=== PATIENT | female | born 1935 | race Caucasian/White ===

== ENCOUNTER → 2018-05-05 | Outpatient (CLI) | payer MEDICARE ==
--- NOTE | 2018-05-05 11:48 | US ---
EXAMINATION TYPE: US abdomen complete DATE OF EXAM: 05/05/2018 COMPARISON: CLINICAL HISTORY: Abnormal gallbladder function K82.9. abn labs, npo EXAM MEASUREMENTS: Liver Length: 12.7 cm Gallbladder Wall: 0.2 cm CBD: 0.3 cm Spleen: 9.6 cm Right Kidney: 9.2 x 5.1 x 3.0 cm Left Kidney: 9.8 x 4.2 x 4.3 cm Pancreas: Appears heterogenous in appearance Liver: Multiple cystic appearing lesions seen throughout liver. Largest measured. Right lobe- 3.2 x 3.6 x 2.8 cm. Left lobe- 1.5 x 1.6 x 2.1 cm Gallbladder: wnl Evidence for sonographic Reardon's sign: neg CBD: wnl Spleen: wnl Right Kidney: multiple cystic appearing lesion seen. Largest measured, lower pole - 1.6 x 1.5 x 1.6 cm Left Kidney: Multiple cystic appearing lesion seen. Largest measured, lower pole = 1.7 x 1.4 x 1.4 cm Upper IVC: wnl Abd Aorta: Plaque visualized, No AAA visualized The liver is homogenous. The intrahepatic portion of the IVC and proximal abdominal aorta are within normal limits. There is no evidence of cholelithiasis. Common bile duct is unremarkable. The sple en is unremarkable. Kidneys are symmetric and free of hydronephrosis. No solid renal lesions are se en. IMPRESSION: 1. Multiple hepatic and renal cysts. 2. Nonspecific pancreatic heterogeneity without distinct lesion.
== END | disposition home or self-care (01) ==
LOC: RADUSWWP 08:55
PROVIDERS: ATTEND Family Medicine
DX: N28.1 Cyst of kidney, acquired (principal); K76.89 Other specified diseases of liver; R93.3 Abnormal findings on diagnostic imaging of other parts of digestive tract
CPT/HCPCS: 76700

== ENCOUNTER → 2018-06-02 | Outpatient (CLI) | payer MEDICARE ==
--- NOTE | 2018-06-02 13:02 | BD ---
EXAMINATION TYPE: Axial Bone Density DATE OF EXAM: 06/02/2018 CLINICAL HISTORY: Height: 62 Weight: 135 FRAX RISK QUESTIONS: Alcohol (3 or more units per day): no Family History (Parent hip fracture): no Glucocorticoids (More than 3mos): no (Ex: prednisone, prednisolone, methylprednisolone, dexamethasone, and hydrocortisone). History of Fracture in Adulthood: no Secondary Osteoporosis: 1. Type 1 Diabetes: no 2. Hyperthyroidism: unsure 3. Menopause before 45: no 4. Malnutrition: no 5. Chronic liver disease: no Rheumatoid Arthritis: no Current Tobacco Use: no RISK FACTORS HISTORY OF: Family History of Osteoporosis: yes Active: somewhat, uses wheelchair at times Diet low in dairy products/other sources of calcium: somewhat-servings several times a week Postmenopausal woman: yes Take estrogen and/or progesterone medications: no Lost more than 2 inches in height since high school: yes Frequent falls: no Poor Health: no Hyperparathyroidism: no Adrenal Insufficiency: no MEDICATIONS: Prednisone or other steroids: no Thyroid Medications: yes Which medication: Levothyroxine How Long: about 50 years Osteoporosis Medications: no Additional Medications: blood pressure meds, heart meds, cholesterol meds Additional History: AFIB , CHF, history uterine CA EXAM MEASUREMENTS: Bone mineral densitometry was performed using the [employer] Spine System. Bone mineral density as measured about the Lumbar spine is: ----- L1-L4(G/cm2): 1.046 T Score Values are as follows: ----- L2: -1.2 ----- L3: -1.0 ----- L4: -1.3 ----- L1-L4: -1.1 Bone mineral density not previously done at this facility; previous elsewhere Bone mineral density about the R hip (g/cm2): 0.742 Bone mineral density about the L hip (g/cm2): 0.741 T Score values are as follows: -----R Neck: -2.1 -----L Neck: -2.1 -----R Total: -2.1 -----L Total: -2.4 Bone mineral density not previously done at this facility; previous elsewhere Bone mineral density about the L Wrist (g/cm2): 0.452 T Score values are as follows: -----Dist. R+U: -4.2 -----Prox. R+U: -2.0 -----Radius total: -3.7 Bone mineral density not previously done at this facility IMPRESSION: 1. Osteoporosis of the wrist. 2. Osteopenia of the bilateral femora. NOTE: T-SCORE=SD OF THE YOUNG ADULT MEAN.
--- NOTE | 2018-06-08 11:50 | MM ---
Reason for exam: screening (asymptomatic). Last mammogram was performed 1 year and 2 months ago. History: Patient is postmenopausal, history of other cancer, and is nulliparous. Family history of breast cancer in 2 maternal aunts. Physical Findings: A clinical breast exam by your physician is recommended on an annual basis and results should be correlated with mammographic findings. MG 3D Screening Mammo W/Cad Bilateral CC and MLO view(s) were taken. Prior study comparison: April 03, 2017, mammogram, performed at [facility] [place]. March 14, 2016, mammogram, performed at [facility] [place]. The breast tissue is extremely dense which could obscure a lesion on mammography. Finding: There are typically benign vascular, dystrophic, round calcifications in both breasts. Asymmetric breast tissue in the right axilla, stable. There is no discrete abnormality. Left axillary pacemaker noted. ASSESSMENT: Benign, BI-RAD 2 RECOMMENDATION: Routine screening mammogram of both breasts in 1 year.
== END | disposition home or self-care (01) ==
LOC: RADMAMWWP 09:46
PROVIDERS: ATTEND Family Medicine
DX: Z12.31 Encounter for screening mammogram for malignant neoplasm of breast (principal); M81.0 Age-related osteoporosis without current pathological fracture; M85.851 Other specified disorders of bone density and structure, right thigh; M85.852 Other specified disorders of bone density and structure, left thigh
CPT/HCPCS: 77063; 77067; 77080